=== PATIENT | female | born 1970 | race Caucasian/White ===

== ENCOUNTER 2018-11-16 05:46 | Emergency (ER) | payer MEDICAID ==
[~2018-11-16] VITALS: Ht 167.6 cm; Wt 70.8 kg
[2018-11-16 05:53] VITALS: Ht 167.6 cm; Wt 70.8 kg
[2018-11-16 08:22] VITALS: BP 103/69
== END 2018-11-16 08:22 | disposition home or self-care (01) ==
LOC: ED 05:46
DX: S51.812A Laceration without foreign body of left forearm, initial encounter (principal); S05.12XA Contusion of eyeball and orbital tissues, left eye, initial encounter; F43.10 Post-traumatic stress disorder, unspecified; Y04.8XXA Assault by other bodily force, initial encounter; Y93.89 Activity, other specified; Y92.89 Other specified places as the place of occurrence of the external cause; Y99.8 Other external cause status
CPT/HCPCS: J2001